=== PATIENT | female | born 1980 | race Asian ===

== ENCOUNTER → 2018-10-18 | Outpatient (CLI) | payer OTHER ==
--- NOTE | 2018-10-18 13:55 | RADIOLOGY REPORT (SQ) ---
EXAM DESCRIPTION: CT CERVICAL SPINE WITHOUT COMPLETED DATE/TIME: 10/18/2018 1:22 pm REASON FOR STUDY: M54.2 CERVICALGIA M54.2 CERVICALGIA COMPARISON: None. TECHNIQUE: Axial images acquired through the cervical spine without intravenous contrast. Images re viewed with lung, soft tissue and bone windows. Reconstructed coronal and sagittal MPR images review ed. Images stored on PACS. All CT scanners at this facility use dose modulation, iterative reconstruction, and/or weight based d osing when appropriate to reduce radiation dose to as low as reasonably achievable (ALARA). [facility]: Dose Right [facility]: CareDose [facility]: Dose Right [facility]: Teradose 4D [facility]: [employer] RADIATION DOSE: CT Rad equipment meets quality standard of care and radiation dose reduction techniq ues were employed. CTDIvol: 16.6 mGy. DLP: 376 mGy-cm. mGy. LIMITATIONS: None. FINDINGS: ALIGNMENT: Slight reversal of the normal cervical lordosis. MINERALIZATION: Normal. VERTEBRAL BODIES: No fractures or dislocation. DISCS: Mild annular bulging at C5-C6 and C6-C7. On the left there is asymmetric foraminal narrowing. FACETS, LATERAL MASSES, POSTERIOR ELEMENTS: No fractures. No dislocation. No acute findings. HARDWARE: None in the spine. VISUALIZED RIBS: No fractures. LUNG APICES AND SOFT TISSUES: No significant or acute findings. OTHER: No other significant finding. IMPRESSION: Disc degenerative disease at C5-C6 and C6-C7. There is a focal left lateral protrusion at C5-C6 on the left with asymmetric narrowing of the left neural foramina. Correlation with MRI may be beneficial for further evaluation. TECHNICAL DOCUMENTATION: JOB ID: [id number] Quality ID # [id number]: Final reports with documentation of one or more dose reduction techniques (e.g., Au tomated exposure control, adjustment of the mA and/or kV according to patient size, use of iterative reconstruction technique) 2010 [employer]- All Rights Reserved Reading location - IP/workstation name: [email or web address]
== END ==
LOC: RAD 13:02
PROVIDERS: ATTEND Physician Assistant Medical
DX: M50.323 Other cervical disc degeneration at C6-C7 level (principal)
CPT/HCPCS: 72125

== ENCOUNTER 2019-09-03 16:47 | Inpatient (IN) | payer OTHER ==
[2019-09-03 18:10] LABS: BACTERIA (WET MOUNT) 4+ BACTERIA SEEN; EPITHELIALS (WET MOUNT) 3+ EPITHELIALS SEEN; T.VAGINALIS (WET MOUNT) NO TRICHOMONAS SEEN; WBCS (WET MOUNT) 4+ WBCS SEEN; YEAST (WET MOUNT) YEAST SEEN
[2019-09-03] MEDS ORDERED: RINGERS SOLUTION,LACTATED 1,000 ML IV SCH (18:15)
[2019-09-03 18:20] LABS: APPEARANCE,URINE SLIGHTLY-CLOUDY; BILIRUBIN,URINE NEGATIVE (NEGATIVE); COLOR,URINE YELLOW; GLUCOSE, URINE NEGATIVE (NEGATIVE); KETONES,URINE NEGATIVE (NEGATIVE); LEUKOCYTE ESTERASE,URINE LARGE (NEGATIVE); NITRITE,URINE NEGATIVE (NEGATIVE); PROTEIN,URINE NEGATIVE (NEGATIVE); URINE SPECIFIC GRAVITY 1.005; UROBILINOGEN,URINE NEGATIVE mg/dL (<2.0)
[2019-09-03] MEDS ORDERED: BETAMET ACET/BETAMET NA INJ 6 MG/1 ML ONE (18:35)
[2019-09-03 18:36] LABS: URINE AMPHETAMINES SCREEN NEGATIVE; URINE BARBITURATES SCREEN NEGATIVE; URINE BENZODIAZEPINES SCREEN NEGATIVE; URINE COCAINE SCREEN NEGATIVE; URINE MARIJUANA (THC) SCREEN NEGATIVE; URINE METHADONE SCREEN NEGATIVE; URINE PHENCYCLIDINE SCREEN NEGATIVE
[2019-09-03] MEDS ORDERED: RINGERS SOLUTION,LACTATED 1,000 ML IV PRN (18:48)
[2019-09-03 19:12] LABS: ABSOLUTE BASOPHILS # (AUTO) 0.1 10^3/uL (0.0-0.2); ABSOLUTE EOSINOPHILS # (AUTO) 0.2 10^3/uL (0.0-0.6); ABSOLUTE LYMPHOCYTES (AUTO) 2.1 10^3/uL (0.5-4.7); ABSOLUTE MONOCYTES (AUTO) 0.9 10^3/uL (0.1-1.4); ABSOLUTE NEUT (AUTO) 11.9 10^3/uL (1.7-8.2); BASOPHILS % (AUTO) 0.7 % (0-2); EOSINOPHILS % (AUTO) 1.4 % (0-6); HEMOGLOBIN 13.6 g/dL (12.0-15.5); LYMPHOCYTES % (AUTO) 13.9 % (13-45); MEAN CORPUSCULAR HEMOGLOBIN 31.9 pg (27.0-33.4); MEAN CORPUSCULAR HGB CONC 34.9 g/dL (32.0-36.0); MEAN CORPUSCULAR VOLUME 91 fl (80-97); MONOCYTES % (AUTO) 6.2 % (3-13); PLATELET COUNT 302 10^3/uL (150-450); RED BLOOD COUNT 4.27 10^6/uL (3.72-5.28); SEGMENTED NEUTROPHILS % (AUTO) 77.8 % (42-78); TOTAL CELLS COUNTED % (AUTO) 100 %; WHITE BLOOD COUNT 15.3 10^3/uL (4.0-10.5)
[2019-09-03] MEDS ORDERED: AMPICILLIN SOD INJ 2 GM VIAL ONE (19:13)
[2019-09-03 19:48] LABS: CHLAM PCR NOT DETECTED (NOT DETECT)
[2019-09-03] MEDS ORDERED: AMPICILLIN SODIUM 2 GM in NORMAL SALINE 100 ML IV ONE (20:00)
--- NOTE | 2019-09-03 20:05 | RADIOLOGY REPORT (SQ) ---
EXAM DESCRIPTION: U/S OB LIMITED IMAGES COMPLETED DATE/TIME: 09/03/2019 7:52 pm REASON FOR STUDY: Placenta location and condition, well-being COMPARISON: None. TECHNIQUE: Limited transabdominal grayscale ultrasound for evaluation of specific requested obstetri renetta parameters. LIMITATIONS: None. FINDINGS: CERVICAL LENGTH: 2.5 cm Closed. MARY: 10.5 cm cm. FHR: 147 beats per minute. PRESENTATION: Cephalic. PLACENTA: Anterior. ANATOMY: Not assessed OTHER: Gestation of 33 weeks 5 days. Estimated body weight is 2451 g. IMPRESSION: LIMITED OBSTETRICAL ULTRASOUND WITH MEASURED PARAMETERS DELINEATED ABOVE. Trimester of : Third trimester - 28 weeks to delivery. TECHNICAL DOCUMENTATION: JOB ID: [id number] 2010 [employer]- All Rights Reserved Reading location - IP/workstation name: [email or web address]
[2019-09-03] MEDS ORDERED: LIDOCAINE 1% INJ-PF (10 MG/ML) 30 ML SDV ONE (22:09)
[2019-09-03] MEDS ORDERED: MISOPROSTOL 0.2 MG TABLET ONE (22:09)
[2019-09-03] MEDS ORDERED: OXYTOCIN 10 UNIT/ML VIAL ONE (22:09)
[2019-09-03] MEDS ORDERED: OXYTOCIN/0.9 % SODIUM CHLORIDE 30 UNIT/500 ML RTUINJ ONE (22:09)
[2019-09-04] MEDS: AMPICILLIN SODIUM 1 GM in NORMAL SALINE 50 ML IV SCH ×5 (04:17→20:27)
[2019-09-04] MEDS ORDERED: BETAMET ACET/BETAMET NA INJ 6 MG/1 ML ONE (06:29)
[2019-09-04] MEDS ORDERED: BETAMET ACET/BETAMET NA INJ 6 MG/1 ML IM PRN (06:42)
--- NOTE | 2019-09-04 09:19 | L&D Progress Notes ---
PROGRESS NOTES Datetime Report Generated by CPN: 09/04/2019 09:19 PROGRESS NOTE Impression: Normal Progression of Labor Procedures: Sterile Vag Exam Plan: Continue Present Management Comment: high leak, has forebag received GBS prophylaxsis received 2 doses of steroids will start pitocin as needed VAGINAL EXAM Dilatation: 7 Effacement: 60 Station: -2 LAST VAGINAL EXAM-NURSING Nursing Exam Dilitation: 6-7 Nursing Exam Effacement: 60 Nursing Exam Station: -2 Nursing Exam Contractions: with irritability MEMBRANES Pooling: Positive Membranes: Ruptured Amniotic Fluid Color: Clear FETUS A FHR - Baseline: 135 Variability: Moderate 6-25bpm Decelerations: None FHR Category: Category I : 35.1 Presentation: Vertex SIGNATURE SIGNATURE: [id number];[id number] Assignment: Дмитрий Osborne MD Signature: with User ID: [email or web address] : with User ID: Juan
[2019-09-04] MEDS ORDERED: EPHEDRINE SULFATE INJ 50 MG/1 ML AMPULE ONE (14:32)
[2019-09-04] MEDS ORDERED: BUPIVACAINE HCL 0.25 % INJ/PF (2.5 MG/1 ML) 30 ML VIAL ONE (14:33)
[2019-09-04] MEDS ORDERED: FENTANYL/BUPIVACAINE/NS/PF 300 MCG/150 ML RTUINJ EPI ONE (14:33)
[2019-09-04] MEDS ORDERED: ROPIVACAINE HCL 0.2% INJ/PF (2 MG/ML) 20 ML SDV ONE (14:36)
--- NOTE | 2019-09-04 16:55 | Warning Signs in Babies ---
VOD Warning Signs Datetime Report Generated by [facility]: 09/04/2019 16:55 VOD#608 -Warning Signs in Babies: Needs to be viewed. (09/03/2019 16:48:Nuris Allen RN)
[2019-09-04] MEDS ORDERED: MAGNESIUM HYDROXIDE SUSP 30 ML UDCUP PO PRN (17:23)
[2019-09-04] MEDS ORDERED: OXYTOCIN/0.9 % SODIUM CHLORIDE 30 UNIT/500 ML RTUINJ IV PRN (17:23)
[2019-09-04] MEDS ORDERED: PSEUDOEPHEDRINE HCL 30 MG TABLET PO PRN (17:23)
[2019-09-04] MEDS ORDERED: MEASLES,MUMPS&RUBELLA VACC/PF 0.5 ML VIAL SUBCUT PRN (17:23)
[2019-09-04] MEDS ORDERED: PROMETHAZINE HCL 25 MG SUPP.RECT PR PRN (17:23)
[2019-09-04] MEDS ORDERED: NA PHOS,M-B/NA PHOS,DI-BA (ADULT) 133 ML ENEMA PR PRN (17:23)
[2019-09-04] MEDS ORDERED: BENZOCAINE/MENTHOL AEROSOL SPRAY 56 ML TOP PRN (17:23)
[2019-09-04] MEDS ORDERED: DIPHENHYDRAMINE HCL 25 MG CAPSULE PO PRN (17:23)
[2019-09-04] MEDS ORDERED: ACETAMINOPHEN WITH CODEINE #3 TABLET PO PRN ×2 (17:23)
[2019-09-04] MEDS ORDERED: PROMETHAZINE HCL INJ 25 MG/1 ML VIAL IV PRN (17:23)
[2019-09-04] MEDS ORDERED: DIBUCAINE 1% OINTMENT 28 GM TP PRN (17:23)
[2019-09-04] MEDS ORDERED: ACETAMINOPHEN 650 MG SUPP.RECT PR PRN (17:23)
[2019-09-04] MEDS ORDERED: GLYCERIN/WITCH HAZEL LEAF 1 EACH MED..WIPE TP PRN (17:23)
[2019-09-04] MEDS ORDERED: ZOLPIDEM TARTRATE 5 MG TABLET PO PRN (17:23)
[2019-09-04] MEDS ORDERED: DIPH/PERTUSS(ACELL)/TETANUS VAC/PF 0.5 ML SYR (>=10YO) IM PRN (17:23)
[2019-09-04] MEDS ORDERED: PROMETHAZINE HCL 25 MG TABLET PO PRN (17:23)
--- NOTE | 2019-09-04 18:12 | Delivery Summary ---
Del Sum A-C Datetime Report Generated by CPN: 09/04/2019 18:12 DELIVERY PERSONNEL DELIVERY PERSONNEL: [id number] Delivery Doctor:: Nilsa Jimenez CNM Labor and Delivery Nurse:: Nuris Allen RNwet finisher Nurse:: Tatiana Guevara RN Nursery Nurse:: Lubna Garcia RN Nursery Nurse:: JAMILAH Daniels/MENDY: Rabia Gary CNA II MATERNAL INFORMATION Delivery Anesthesia: Epidural Medications After Delivery: Pitocin 30 Units in 500ml NS/D5W Delivery QBL: 150 Delivery QBL Comment: 150 Maternal Complications: Premature Rupture of Membranes Provider Comments: SVDVM over intact perineum with 1* rt periurethral. Repaired as above. vigorous, to maternal abd. Cord clamped x 2 cut per pt mother. 3VC. Placenta spont via hooper. Mother and infant stable. Apgars 9,9. LABOR SUMMARY EDC: 10/08/2019 00:00 No. Babies in Womb: 1 Attempted: No Labor Anesthesia: Epidural LABOR INFORMATION Reason for Induction: Premature Rupture of Membranes Onset of Labor: 09/04/2019 09:08 Complete Dilatation: 09/04/2019 15:15 Oxytocin: Augmentation Group B Beta Strep: Unknown Antibiotics # of Doses: 5 Antibiotics Time of Last Dose: 1224 Name of Antibiotic Given: ampicillin Steroids Given: Full Course Reason Steroids Not Administered: Not Applicable MEMBRANES Membranes Rupture Method: Spontaneous Rupture of Membranes: 09/03/2019 09:00 Length of Rupture (hr): 31.82 Amniotic Fluid Color: Clear Amniotic Fluid Amount: Small Amniotic Fluid Odor: None STAGES OF LABOR Stage 1 hr: 6 Stage 1 min: 7 Stage 2 hr: 1 Stage 2 min: 34 Stage 3 hr: 0 Stage 3 min: 22 Total Time in Labor hr: 8 Total Time in Labor min: 3 VAGINAL DELIVERY Episiotomy: None Laceration #1: Periurethral Laceration Extension #1: First Degree Other Laceration: repaired Laceration Repair: Not Applicable Laceration Repair Note: 3.0 chromic suture Sponge Count Correct: N/A Sharps Count Correct: N/A CSECTION DELIVERY Primary Indication: N/A Secondary Indication: N/A CSection Incidence: N/A Labor: N/A Elective: N/A CSection Incision: N/A BABY A INFORMATION Delivery Date/Time: 09/04/2019 16:49 Method of Delivery: Vaginal Nurse Controlled Delivery: No Born in Route : No : N/A Forceps: N/A Vacuum Extraction: N/A Shoulder Dystocia : No PRESENTATION/POSITION BABY A Presentation: Cephalic Cephalic Presentation: Vertex Vertex Position: Left Occipital Anterior Breech Presentation: N/A PLACENTA INFORMATION BABY A Placenta Delivery Time : 09/04/2019 17:11 Placenta Method of Delivery: Spontaneous Placenta Status: Delivered SCORES BABY A Heart Rate 1 min: >100 bpm Resp Effort 1 min: Good Cry Reflex Irritability 1 min: Cough or Sneeze or Pulls Away Muscle Tone 1 min: Active Motion Color 1 min: Body [place], Extremities Blue Resuscitation Effort 1 min: Tactile Stimulation SCORE 1 MIN: 9 Heart Rate 5 min: >100 bpm Resp Effort 5 min: Good Cry Reflex Irritability 5 min: Cough or Sneeze or Pulls Away Muscle Tone 5 min: Active Motion Color 5 min: Body [place], Extremities Blue Resuscitation Effort 5 min: N/A SCORE 5 MIN: 9 INFANT INFORMATION BABY A Gestational Age at Delivery: 35.1 Gestational Status: Late - 34- 36.6 Weeks Infant Outcome : Liveborn Infant Condition : Stable Sex: Male IDENTIFICATION BABY A Verification Date/Time: 09/04/2019 17:18 ID Band Number: [id number] Mother's Name Verified: Yes RN Verifying Infant: AFeuston, RN MMobley, RN WEIGHT/LENGTH BABY A Birthweight (gm): 2543 Weight (lb): 5 Weight (oz): 10 Length (in): 19.00 Length (cm): 48.26 CORD INFORMATION BABY A No. Cord Vessels: 3 Nuchal Cord : N/A Cord Blood Taken: Yes-For Storage (Mom's Blood type +) Infant Suction: None ASSESSMENT BABY A Complications: None Physical Findings at Delivery: Within Normal Limits Infant Respirations: Appears Normal Skin to Skin: Yes Radio Antenna Installer/ALS Called : No Infant Care By: TTwigg, RN Transferred To: Remains with Mother BABY B INFORMATION : N/A SIGNATURES Assignment: Дмитрий Osborne MD Signature: with User ID: [email or web address] : with User ID: Juan : I was personally available for consultation and serving as supervising physician for the MLP.
[2019-09-04] MEDS ORDERED: IBUPROFEN 800 MG TABLET ONE (19:39)
[2019-09-04] MEDS: IBUPROFEN 800 MG TABLET PO SCH (19:44)
[2019-09-04] MEDS: DOCUSATE SODIUM 100 MG CAPSULE PO SCH (20:22)
[2019-09-04] MEDS: FERROUS SULFATE 325 MG TABLET PO SCH (20:22)
[2019-09-04] MEDS: FAMOTIDINE 20 MG TABLET PO SCH (22:49)
[2019-09-05] MEDS: IBUPROFEN 800 MG TABLET PO SCH ×3 (02:20→18:08)
[2019-09-05 07:33] LABS: HEMATOCRIT 33.8 % (36.0-47.0); HEMOGLOBIN 11.6 g/dL (12.0-15.5); MEAN CORPUSCULAR HEMOGLOBIN 31.5 pg (27.0-33.4); MEAN CORPUSCULAR HGB CONC 34.3 g/dL (32.0-36.0); MEAN CORPUSCULAR VOLUME 92 fl (80-97); PLATELET COUNT 291 10^3/uL (150-450); RED BLOOD COUNT 3.68 10^6/uL (3.72-5.28); WHITE BLOOD COUNT 26.1 10^3/uL (4.0-10.5)
[2019-09-05] MEDS ORDERED: [UNRECOGNIZED DRUG - REMARK] PO SCH (10:00)
[2019-09-05] MEDS: DOCUSATE SODIUM 100 MG CAPSULE PO SCH ×2 (10:17→18:08)
[2019-09-05] MEDS: PRENATAL VITAMIN W DHA CAPSULE PO SCH (10:17)
[2019-09-05] MEDS: FAMOTIDINE 20 MG TABLET PO SCH ×2 (10:17→21:38)
[2019-09-05] MEDS: FERROUS SULFATE 325 MG TABLET PO SCH ×2 (10:17→18:08)
[2019-09-05] MEDS: SENNOSIDES/DOCUSATE 8.6-50 MG 1 EACH TABLET PO SCH (10:17)
--- NOTE | 2019-09-05 10:33 | PDOC PROGRESS REPORT ---
Subjective-OB Progress Note for:: 09/05/19 Subjective: Doing well today, no c/o, , desires circumcision, voiding, scant lochia Physical Exam (OB) Vital Signs: Temp Pulse Resp BP Pulse Ox 98.0 F 66 18 109/59 L 97 09/05/19 07:27 09/05/19 07:27 09/05/19 07:27 09/05/19 07:27 09/05/19 07:27 Intake & Output 09/04/19 09/05/19 09/06/19 06:59 06:59 06:59 Intake Total 50 Output Total 500 Balance -450 Weight 85.3 kg - PIH/Pre-Eclampsia DTR's: 2 + Clonus: Negative Headache: Absent Epigastric Pain: No Visual Changes: No - Lochia Lochia Amount: Scant < 10 ml Lochia Color: Rubra/Red - Abdomen Description: Soft, Round Hernia Present: No Fundal Description: Firm, Midline Fundal Height: u/u - u/2 Objective-Diagnostic Laboratory: 09/05/19 06:45 09/05/19 06:45 WBC 26.1 H RBC 3.68 L Hgb 11.6 L Hct 33.8 L MCV 92 MCH 31.5 MCHC 34.3 RDW 14.0 Plt Count 291 09/03/19 20:21 Vaginal/Anorectal Group B Streptococcus Culture - Final GROUP B BETA HEMOLYTIC STREPTOCOCCUS RECOVERED Assessment and Plan(PN) - Assessment and Plan (1) Depression Qualifiers: Depression Type: unspecified Qualified Code(s): F32.9 - Major depressive disorder, single episode, unspecified Is this a current diagnosis for this admission?: Yes (2) Lupus Is this a current diagnosis for this admission?: Yes (3) AMA (advanced maternal age) multigravida 35+ Qualifiers: Trimester: first trimester Qualified Code(s): O09.521 - Supervision of elderly multigravida, first trimester Is this a current diagnosis for this admission?: Yes (4) Vaginal delivery Is this a current diagnosis for this admission?: Yes (5) premature rupture of membranes Qualifiers: PROM onset of labor timing: onset of labor within 24 hours of rupture Qualified Code(s): O42.019 - premature rupture of membranes, onset of labor within 24 hours of rupture, unspecified trimester Is this a current diagnosis for this admission?: Yes - Time Spent with Patient Time with patient: Less than 15 minutes Medications reviewed and adjusted accordingly: Yes - Disposition Anticipated Discharge: Home Within: within 24 hours
[2019-09-06] MEDS: IBUPROFEN 800 MG TABLET PO SCH ×2 (01:24→11:11)
[2019-09-06 08:09] VITALS: BP 120/65
--- NOTE | 2019-09-06 10:27 | PDOC PROGRESS REPORT ---
Subjective-OB Progress Note for:: 09/06/19 Subjective: ready to go home, no c/o, Physical Exam (OB) Vital Signs: Temp Pulse Resp BP Pulse Ox 98.0 F 63 16 120/65 97 09/06/19 07:17 09/06/19 07:17 09/06/19 07:17 09/06/19 07:17 09/06/19 07:17 Intake & Output 09/05/19 09/06/19 09/07/19 06:59 06:59 06:59 Intake Total 50 Output Total 500 Balance -450 - PIH/Pre-Eclampsia DTR's: 2 + Clonus: Negative Headache: Absent Epigastric Pain: No Visual Changes: No - Lochia Lochia Amount: Scant < 10 ml Lochia Color: Rubra/Red - Abdomen Description: Tender Hernia Present: No Fundal Description: Firm Fundal Height: u/u - u/2 Objective-Diagnostic Laboratory: 09/05/19 06:45 09/03/19 20:21 Vaginal/Anorectal Group B Streptococcus Culture - Final GROUP B BETA HEMOLYTIC STREPTOCOCCUS RECOVERED Assessment and Plan(PN) - Assessment and Plan (1) Depression Qualifiers: Depression Type: unspecified Qualified Code(s): F32.9 - Major depressive disorder, single episode, unspecified Is this a current diagnosis for this admission?: Yes (2) Lupus Is this a current diagnosis for this admission?: Yes (3) AMA (advanced maternal age) multigravida 35+ Qualifiers: Trimester: first trimester Qualified Code(s): O09.521 - Supervision of [place] multigravida, first trimester Is this a current diagnosis for this admission?: Yes (4) Vaginal delivery Is this a current diagnosis for this admission?: Yes (5) premature rupture of membranes Qualifiers: PROM onset of labor timing: onset of labor within 24 hours of rupture Qualified Code(s): O42.019 - premature rupture of membranes, onset of labor within 24 hours of rupture, unspecified trimester Is this a current diagnosis for this admission?: Yes - Time Spent with Patient Time with patient: Less than 15 minutes Medications reviewed and adjusted accordingly: Yes - Disposition Anticipated Discharge: Home Within: within 24 hours
--- NOTE | 2019-09-06 10:32 | PDOC DISCHARGE SUMMARY ---
Impression - Admit/DC Date/PCP Admission Date/Primary Care Provider: 09/03/19 18:40 ZURI PADILLA Discharge Date: 09/06/19 - Discharge Diagnosis (1) Depression Is this a current diagnosis for this admission?: Yes (2) Lupus Is this a current diagnosis for this admission?: Yes (3) AMA (advanced maternal age) multigravida 35+ Is this a current diagnosis for this admission?: Yes (4) Vaginal delivery Is this a current diagnosis for this admission?: Yes (5) premature rupture of membranes Is this a current diagnosis for this admission?: Yes - Additional Information Resuscitation Status: Full Code Discharge Diet: As Tolerated, Regular Discharge Activity: Activity As Tolerated, Pelvic Rest Referrals: CORINNE LEVI PA [Primary Care Provider] - ([facility] 4 weeks) Home Medications: Pnv No.95/Ferrous Fum/Folic AC [ Caplet] 1 cap PO DAILY 09/03/19 HPI Gestational Age: 35.1 Reason(s) for Admission: PROM, Labor, Medical Complications, Advanced Maternal Age Procedures: NST, Ultrasound Intrapartum Procedure(s): Spontaneous Vaginal Delivery Complication(s): Laceration-Periurethral Laceration-Degree: 1st Hospital Course Hospital Course: routine Results Laboratory Results: WBC 26.1 10^3/uL (4.0-10.5) H 09/05/19 06:45 RBC 3.68 10^6/uL (3.72-5.28) L 09/05/19 06:45 Hgb 11.6 g/dL (12.0-15.5) L 09/05/19 06:45 Hct 33.8 % (36.0-47.0) L 09/05/19 06:45 MCV 92 fl (80-97) 09/05/19 06:45 MCH 31.5 pg (27.0-33.4) 09/05/19 06:45 MCHC 34.3 g/dL (32.0-36.0) 09/05/19 06:45 RDW 14.0 % (11.5-14.0) 09/05/19 06:45 Plt Count 291 10^3/uL (150-450) 09/05/19 06:45 Lymph % (Auto) 13.9 % (13-45) 09/03/19 19:07 [place] % (Auto) 6.2 % (3-13) 09/03/19 19:07 Eos % (Auto) 1.4 % (0-6) 09/03/19 19:07 Baso % (Auto) 0.7 % (0-2) 09/03/19 19:07 Absolute Neuts (auto) 11.9 10^3/uL (1.7-8.2) H 09/03/19 19:07 Absolute Lymphs (auto) 2.1 10^3/uL (0.5-4.7) 09/03/19 19:07 Absolute Monos (auto) 0.9 10^3/uL (0.1-1.4) 09/03/19 19:07 Absolute Eos (auto) 0.2 10^3/uL (0.0-0.6) 09/03/19 19:07 Absolute Basos (auto) 0.1 10^3/uL (0.0-0.2) 09/03/19 19:07 Seg Neutrophils % 77.8 % (42-78) 09/03/19 19:07 Urine Color YELLOW 09/03/19 17:23 Urine Appearance SLIGHTLY-CLOUDY 09/03/19 17:23 Urine pH 6.0 (5.0-9.0) 09/03/19 17:23 Ur Specific [place] 1.005 09/03/19 17:23 Urine Protein NEGATIVE mg/dL (NEGATIVE) 09/03/19 17:23 Urine Glucose (UA) NEGATIVE mg/dL (NEGATIVE) 09/03/19 17:23 Urine Ketones NEGATIVE mg/dL (NEGATIVE) 09/03/19 17:23 Urine Blood SMALL (NEGATIVE) H 09/03/19 17:23 Urine Nitrite NEGATIVE (NEGATIVE) 09/03/19 17:23 Urine Bilirubin NEGATIVE (NEGATIVE) 09/03/19 17:23 Urine Urobilinogen NEGATIVE mg/dL (<2.0) 09/03/19 17:23 Ur Leukocyte Esterase LARGE (NEGATIVE) H 09/03/19 17:23 Urine WBC (Auto) 2 /HPF 09/03/19 17:23 Urine RBC (Auto) 7 /HPF 09/03/19 17:23 U Hyaline Cast (Auto) 1 /LPF 09/03/19 17:23 Urine Bacteria (Auto) 3+ /HPF 09/03/19 17:23 Squamous Epi Cells Auto 6 /HPF 09/03/19 17:23 Urine Mucus (Auto) RARE /LPF 09/03/19 17:23 Urine Yeast (Budding) PRESENT /HPF 09/03/19 17:23 Urine Ascorbic Acid NEGATIVE (NEGATIVE) 09/03/19 17:23 Amniotic Ferning Test FERN PATTERN ABSENT (ABSENT) 09/03/19 17:23 Membranes Rupture POSITIVE (NEGATIVE) H 09/03/19 17:23 Epi Cells (Wet Prep) 3+ EPITHELIALS SEEN 09/03/19 17:23 Bacteria (Wet Prep) 4+ BACTERIA SEEN 09/03/19 17:23 Trichomonas (Wet Prep) NO TRICHOMONAS SEEN 09/03/19 17:23 Vaginal WBC 4+ WBCS SEEN 09/03/19 17:23 Vaginal Yeast YEAST SEEN 09/03/19 17:23 Urine Opiates Screen NEGATIVE 09/03/19 17:23 Urine Methadone Screen NEGATIVE 09/03/19 17:23 Ur Barbiturates Screen NEGATIVE 09/03/19 17:23 Ur Phencyclidine Scrn NEGATIVE 09/03/19 17:23 Ur Amphetamines Screen NEGATIVE 09/03/19 17:23 U Benzodiazepines Scrn NEGATIVE 09/03/19 17:23 Urine Cocaine Screen NEGATIVE 09/03/19 17:23 U Marijuana (THC) Screen NEGATIVE 09/03/19 17:23 RPR NONREACTIVE (NONREACTIVE) 09/03/19 19:07 Chlamydia DNA (PCR) NOT DETECTED (NOT DETECT) 09/03/19 17:23 N.gonorrhoeae DNA (PCR) NOT DETECTED (NOT DETECT) 09/03/19 17:23 Blood Type B POSITIVE 09/03/19 19:07 Antibody Screen NEGATIVE 09/03/19 19:07 Impressions: Obstetrics Ultrasound 09/03/19 18:02 IMPRESSION: LIMITED OBSTETRICAL ULTRASOUND WITH MEASURED PARAMETERS DELINEATED ABOVE. Trimester of : Third trimester - 28 weeks to delivery. Plan Health Concerns: routine Plan of Treatment: discharge home, rtc 4 weeks Goals: no complications Time Spent: Less than 30 Minutes
[2019-09-06] MEDS: DOCUSATE SODIUM 100 MG CAPSULE PO SCH (11:12)
[2019-09-06] MEDS: FAMOTIDINE 20 MG TABLET PO SCH (11:12)
[2019-09-06] MEDS: SENNOSIDES/DOCUSATE 8.6-50 MG 1 EACH TABLET PO SCH (11:12)
[2019-09-06] MEDS: FERROUS SULFATE 325 MG TABLET PO SCH (11:12)
[2019-09-06] MEDS: PRENATAL VITAMIN W DHA CAPSULE PO SCH (11:12)
== END 2019-09-06 17:00 | disposition home or self-care (01) | DRG 807 ==
LOC: LC 16:47 → LR 18:40 → 2S 09-04 20:14
PROVIDERS: ADMIT Obstetrics & Gynecology; ATTEND Obstetrics & Gynecology
PROC: 10E0XZZ Delivery of Products of Conception, External Approach (ICD-10-PCS; principal; 2019-09-04)
PROC: 0HQ9XZZ Repair Perineum Skin, External Approach (ICD-10-PCS; 2019-09-04)
DX: O42.913 Preterm premature rupture of membranes, unspecified as to length of time between rupture and onset of labor, third trimester (principal); Z37.0 Single live birth; M32.9 Systemic lupus erythematosus, unspecified; O99.344 Other mental disorders complicating childbirth; O71.82 Other specified trauma to perineum and vulva; Z3A.35 35 weeks gestation of pregnancy; Z87.891 Personal history of nicotine dependence; F32.9 Major depressive disorder, single episode, unspecified
CPT/HCPCS: 1967; 36415; 59025; 76815; 80307; 81001; 84112; 85025; 85027; 86592; 86850; 86900; 86901; 87077; 87081; 87210; 87491; 87591; 88307; C1758; J0290; J0702; J2590; J2795; J3010; J3490; J7050; Q0114

== ENCOUNTER 2019-12-01 06:09 | Day surgery (SDC) | payer OTHER ==
[2019-11-25 12:56] LABS: HEMOGLOBIN 15.3 g/dL (12.0-15.5); MEAN CORPUSCULAR HEMOGLOBIN 30.7 pg (27.0-33.4); MEAN CORPUSCULAR HGB CONC 34.1 g/dL (32.0-36.0); MEAN CORPUSCULAR VOLUME 90 fl (80-97); PLATELET COUNT 359 10^3/uL (150-450); RED CELL DISTRIBUTION WIDTH 13.4 % (11.5-14.0); WHITE BLOOD COUNT 7.8 10^3/uL (4.0-10.5)
[2019-11-25 12:59] LABS: APPEARANCE,URINE CLEAR; BILIRUBIN,URINE NEGATIVE (NEGATIVE); COLOR,URINE STRAW; GLUCOSE, URINE NEGATIVE (NEGATIVE); KETONES,URINE NEGATIVE (NEGATIVE); LEUKOCYTE ESTERASE,URINE NEGATIVE (NEGATIVE); NITRITE,URINE NEGATIVE (NEGATIVE); PROTEIN,URINE NEGATIVE (NEGATIVE); URINE SPECIFIC GRAVITY 1.004; UROBILINOGEN,URINE NEGATIVE mg/dL (<2.0)
[2019-12-01] MEDS ORDERED: FENTANYL CITRATE INJ/PF 100 MCG/2 ML AMPUL ONE (08:15)
[2019-12-01] MEDS ORDERED: MORPHINE SULFATE 10 MG/ML INJ ONE (08:16)
[2019-12-01] MEDS ORDERED: MIDAZOLAM 2 MG/2 ML INJ ONE (08:16)
[2019-12-01] MEDS ORDERED: DEXAMETHASONE SOD PHOSPHATE INJ 4 MG/1 ML VIAL ONE (08:16)
[2019-12-01] MEDS ORDERED: ONDANSETRON HCL INJ/PF 4 MG/2 ML SDV ONE (08:16)
[2019-12-01] MEDS ORDERED: PROPOFOL INJ 200 MG/20 ML VIAL IV ONE (08:16)
[2019-12-01] MEDS ORDERED: SCOPOLAMINE HYDROBROMIDE 1.5 MG PATCH.TD72 ONE (08:34)
[2019-12-01] MEDS ORDERED: PROMETHAZINE HCL INJ 25 MG/1 ML VIAL IV PRN ×2 (09:22)
[2019-12-01] MEDS ORDERED: MORPHINE SULFATE 10 MG/ML INJ IV PRN (09:22)
[2019-12-01] MEDS ORDERED: MEPERIDINE HCL/PF INJ 25 MG/1 ML DISP.SYRIN IV PRN (09:22)
[2019-12-01] MEDS ORDERED: DIPHENHYDRAMINE HCL 50 MG/ML VIAL IV PRN (09:22)
[2019-12-01] MEDS ORDERED: FENTANYL CITRATE INJ/PF 100 MCG/2 ML AMPUL IV PRN ×3 (09:22)
[2019-12-01] MEDS ORDERED: OXYCODONE-ACETAMINOPHEN 5-325 MG TABLET PO PRN ×4 (09:22→09:29)
[2019-12-01] MEDS ORDERED: KETOROLAC TROMETHAMINE INJ/PF 30 MG/1 ML SDV IV PRN (09:29)
[2019-12-01] MEDS ORDERED: RINGERS SOLUTION,LACTATED 1,000 ML IV PRN (09:29)
[2019-12-01] MEDS ORDERED: IBUPROFEN 800 MG TABLET PO PRN (09:29)
--- NOTE | 2019-12-01 09:33 | Operative Report ---
Operative Report DATE OF SURGERY: 12/01/19 PREOPERATIVE DIAGNOSIS: Patient desires surgical sterilization POSTOPERATIVE DIAGNOSIS: Same OPERATION: Laparoscopic bilateral tubal cautery SURGEON: STACEY WATSON ANESTHESIA: GA TISSUE REMOVED OR ALTERED: Fallopian tube COMPLICATIONS: None ESTIMATED BLOOD LOSS: Minimal INTRAOPERATIVE FINDINGS: Normal uterus tubes and ovaries PROCEDURE: Patient was taken the OR and placed in supine position. Anesthesia was induced. She is placed in the dorsolithotomy position using Sarkis stirrups. Her abdomen perineum and vagina were prepared and draped in sterile fashion. She had just voided and did not need catheterization. An incision was made the umbilicus. The natural umbilical defect was identified and dilated with Nilsa clamp allowing a blunt port to be placed. Laparoscopy confirmed appropriate placement. The abdomen was insufflated with CO2 gas. Each tube was identified by its fimbriated end and then cauterized at its mid isthmic portion moving back toward the uterine cornu with 5 successive bites. Photos were taken. There were no complications. At the end of the case the gas was allowed to escape from the abdomen. The port and scope were removed at the same time. The fascia at the umbilicus was closed with a 2-0 Vicryl stitch and skin closed with a 4-0 undyed Vicryl stitch. The sponge stick was removed from the vagina at the end of the case. The patient was placed back in supine position brought out of anesthesia and taken recovery room in stable condition.
[2019-12-01] MEDS ORDERED: SCOPOLAMINE HYDROBROMIDE 1.5 MG PATCH.TD72 TD ONE (10:00)
[2019-12-01 12:04] VITALS: BP 121/82
--- NOTE | 2019-12-03 10:46 | Discharge Summary ---
Discharge Summary (SDC) - Discharge Final Diagnosis: Encounter for tubal ligation Date of Surgery: 12/01/19 Discharge Date: 12/01/19 Condition: Good Forms: ASU Anesthesia D/C Instruction, Discharge POC-Surgical Service Treatment or Instructions: MONITOR FOR BLEEDING, YELLOW GREEN DRAINAGE, SWELLING, FEVER 101 F OR GREATER, NO TUB BATHS OR SWIMMING, NO LIFTING PUSHING OR PULLING, FOLLOW UP WITH YOUR DOCTOR DIRECTED Prescriptions: Oxycodone HCl/Acetaminophen [Percocet 5-325 mg Tablet] 1 tab PO Q4HP PRN #20 tablet PRN Reason: Ibuprofen [Motrin 800 mg Tablet] 800 mg PO Q8H PRN #30 tablet PRN Reason: Referrals: STACEY WATSON MD [ACTIVE STAFF] - Respiratory Treatments at Home: Deep Breathing/Coughing Discharge Activity: Activity As Tolerated, Balance Activity w/Rest, Bedrest, No Driving, No Lifting Over 10 Pounds, No Lifting/Push/Pulling, Slowly Increase Activity Home Care Assistance: None Needed Report the Following to Your Physician Immediately: Shortness of Breath, Nausea, Vomiting, Fever over 101 Degrees, Unusual Bleeding, Redness, Swelling, Warmth, Increased Soreness, Drainage-Yellow, Drainage-Green
== END 2019-12-01 11:40 | disposition home or self-care (01) ==
LOC: OROUT 06:09
PROVIDERS: ATTEND Obstetrics & Gynecology
DX: Z30.2 Encounter for sterilization (principal); M32.9 Systemic lupus erythematosus, unspecified; Z79.899 Other long term (current) drug therapy; Z87.891 Personal history of nicotine dependence; Z03.818 Encounter for observation for suspected exposure to other biological agents ruled out
CPT/HCPCS: 36415; 85027; 87635; 81005; 81025; 00851; 58670; J2250; J1100; J3010; J2270; J2405; J2704; C9803; 851